=== PATIENT | female | born 1980 | race Caucasian/White ===

== ENCOUNTER 2024-04-28 11:58 | Emergency (ER) | payer OTHER, SELFPAY ==
[2024-04-28 12:06] VITALS: BP 195/129
--- NOTE | 2024-04-28 12:46 | ED.GENMED ---
History of Present Illness
General
Chief Complaint: Ear Problem
Time Seen by Provider: 04/28/24 12:31
History of Present Illness
History of Present Illness:
44yoF hx leukemia in remission, HTN, migraines presenting with right ear pain/fullness starting SaturdayApril 24. Pt reports history of sinusitis in February 2024 which resolved with 2 week course of doxycycline and 1 week course of keflex. Pt
states she went diving in [facility] last week, deepest was 103ft deep. Pt states after diving on Saturday, she was having increased right ear pressure and pain. Pt reports taking Pseudafed. Pt states pain radiates to right forehead/maxillary
sinus. Pt denies fever, chills, numbness, weakness, tingling, dizziness, lightheadedness, or visual changes. Due to persistent symptoms, pt presents to the ER today. Pt denies following up with ENT after sinusitis episode last month.
Past History
Past History
ED Past Medical History: Cancer (Leukemia, in remission) and HTN
ED Past Surgical History: Appendectomy, Gynecological (endometriosis) and Other (Bone marrow transplant)
Social History
Tobacco: Non-smoker
Alcohol: Occasional
Personal:
Living: with family
Phy Exam
Physical Exam
Physical Exam:
General: Alert, no acute distress, well appearing
Head: NCAT
ENT: right TM injected with no TM perforation or discharge. Left TM clear with no erythema or discharge. Bilateral ear canals clear with no erythema or discharge. no tenderness to palpation of bilateral mastoids. Posterior oropharynx clear with no
erythema, no exudates. Uvula midline.
Eyes: clear conjunctiva. EOMI. PERRLA
Neck: supple, no lymphadenopathy
Cardiac: regular rate and rhythm, no murmur
Lungs: clear to auscultation bilaterally. No wheezes, rales, or rhonchi. Speaking full unlabored sentences. No respiratory distress.
Abdomen: soft, nondistended nontender. No rebound or guarding.
MSK: no lower extremity edema bilaterally. No deformity
Skin: warm, dry
Neuro: Alert and oriented x3. no focal deficits
Course
Orders/Labs/Results
Orders:
Orders
04/28/24 12:55
Azithromycin [Zithromax] 500 mg PO NOW STA
Vital Signs
Initial and Last Documented VS:
Initial Vital Signs
Temp Pulse Resp BP Pulse Ox
98.3 F 87 16 195/129 98
04/28/24 12:06 04/28/24 12:06 04/28/24 12:06 04/28/24 12:06 04/28/24 12:06
Last Documented Vital Signs
Temp Pulse Resp BP Pulse Ox
98.3 F 87 16 195/129 98
04/28/24 12:06 04/28/24 12:06 04/28/24 12:06 04/28/24 12:06 04/28/24 12:06
MDM/Problems Addressed
MDM/Problems Addressed:
44yoF presenting with right ear pain over the past 4-5 days. Right TM injected with no TM perforation, no discharge. Pt has amoxicillin allergy (rash), but has tolerated azithromycin in past. Will start on azithromycin, stable for ENT follow up.
Chronic conditions affecting care: HTN
*Critical Care Note
Total Time (30-74mins, 75-104mins- exclusive of procedures): Not Applicable
ED Attending Note
-
Portions of this chart may have been created with voice recognition software.� Occasional wrong word or��sound alike� substitutions may have occurred due to the inherent limitations of voice recognition software.
Discharge Plan
Departure
Patient Disposition: Home (Routine Discharge)
Date of Disposition: 04/28/24
Time of Disposition: 12:53
Patient with high blood pressure during this ER visit?: Yes
Discharge Problem:
Otitis media
Instructions: Ear Infection ED, BLOOD PRESSURE
Prescriptions:
New
azithromycin [Zithromax Z-Navdeep] 250 mg tablet
250 mg PO DAILY 4 Days Qty: 4 0RF
No Action
metronidazole 500 MG tablet
500 mg PO TID Qty: 21 0RF
levofloxacin 500 MG tablet
500 mg PO DAILY Qty: 7 0RF
hydrocortisone-pramoxine [Proctofoam HC] 10 GM foam
1 applic MT TIDPRN PRN (Reason: pain) Qty: 1 0RF
Referrals:
Colin Proctor MD [Active] -
UNKNOWN - PT NOT,INTERVIEWE [Unknown Provider] -
Activity Restrictions/Additional Instructions:
Take azithromycin daily starting tomorrow (you received first dose in ER today)
Take flonase as needed
Follow up with ENT
Your blood pressure was elevated in the ER today. Follow up with primary care doctor regarding high blood pressure. Return sooner for chest pain, shortness of breath, numbness, weakness, tingling or visual changes
Return to the emergency department for fever or new/worsening symptoms
Discharge Date and Time
Print Language: ALGERIAN
[2024-04-28] MEDS: ZITHROMAX 500 MG PO (13:04)
== END 2024-04-28 13:10 | disposition home or self-care (01) ==
LOC: EMR 11:58
PROVIDERS: EMERGENCY PHYSICIAN Emergency Medicine; FAMILY PHYSICIAN Family Medicine
DX: H66.91 Otitis media, unspecified, right ear (principal); I10 Essential (primary) hypertension
CPT/HCPCS: 99283